=== PATIENT | female | born 1940 | race Caucasian/White ===

== ENCOUNTER → 2024-04-18 10:16 | Outpatient (REF) | payer OTHER, SELFPAY | LOC: HWRAD 10:16 | PROVIDERS: ATTENDING PHYSICIAN Internal Medicine | DX: R05.1 Acute cough (principal) | CPT/HCPCS: 71046 ==

== ENCOUNTER 2024-05-01 00:28 | Emergency (ER) | payer OTHER, SELFPAY ==
[2024-05-01 00:30] VITALS: BP 144/66
[2024-05-01 00:35] VITALS: BP 146/66
[2024-05-01] MEDS: REGLAN 10 MG IV (00:40)
--- NOTE | 2024-05-01 00:42 | ED.GENMED ---
History of Present Illness
General
Chief Complaint: Abdominal Symptoms
Source: patient and ambulance crew
Exam Limitations: none
Time Seen by Provider: 05/01/24 00:31
Nursing documentation reviewed up to this point in time: agreed with
History of Present Illness
History of Present Illness:
Pleasant 83-year-old female presents with nausea and dry heaving. She states that she was out with some friends at a [place] restaurant and felt sick after eating a meal. She did not have any diarrhea or fever. She has not actually vomited up any
food. She did receive Zofran and route to the hospital which she reports did not help.
Vital signs are stable. Patient not hypoxic
Nursing note reviewed. I agree with nursing documentation up to this point in time.
Home Meds and allergies reviewed.
NUMBER AND COMPLEXITY OF PROBLEMS ADDRESSED AT THE ENCOUNTER
� Chronic conditions affecting care: Esophagectomy
� Acute Exacerbation and/or Progression of Chronic Illness: Esophagectomy, GERD
� Differential Diagnosis includes: GERD, abdominal pain, cholelithiasis, small bowel obstruction, gastric outlet obstruction
AMOUNT AND/OR COMPLEXITY OF DATA TO BE REVIEWED AND ANALYZED
I performed an independent evaluation of the following and my interpretation is:
EKG:
CT:
X-rays:
Ultrasound:
Laboratory Studies: BUN is 23 creatinine is 0.8 T. bili 0.5 and normal.
Other:
Review of other/old records:
Clinical information was obtained by an independent historian:
Prescriptions/Medications Considered but not given:
Further testing considered but not performed:
RISK OF COMPLICATIONS AND/OR MORBIDITY OR MORTALITY OF PATIENT MANAGEMENT
Social determinants of health affecting care: Good Social Support, family at the bedside
Discussion with other providers:
Escalation of care including admission/observation vs risk of discharge considered:
CRITICAL CARE NOTE:
Total Time (exclusive of procedures):
Update:
Past History
Past History
ED Past Medical History: HTN, Hypothyroidism and Other (Trigeminal neuralgia, valvular heart disease,); Negative CAD
ED Past Surgical History: Cholecystectomy and Other (Esophajectomy)
Social History
Tobacco: Non-smoker
Alcohol: None
Personal:
Living: with family
Employment: Retired
Family History
Family History: CAD
Review of Systems
Review of Systems
Allergies reviewed?: Yes
All Other Systems: ROS reviewed and negative except as documented in HPI and ROS
Constitutional: Reports no symptoms
EENT: Reports no symptoms
Respiratory: Reports no symptoms
Cardiac: Reports no symptoms
ABD/GI: Reports abdominal pain, nausea and vomiting
: Reports no symptoms
Musculoskeletal: Reports no symptoms
Skin: Reports no symptoms
Neurological: Reports no symptoms
Endocrine: Reports no symptoms
Hematologic/Lymphatic: Reports no symptoms
Psychiatric: Reports no symptoms
Phy Exam
General Physical Exam
General Presentation: well appearing and moderate distress
General age: appears stated age
General Skin: warm and dry
General Habitus: normal
General Mental: alert
General Hydration: appears well hydrated
Cardiovascular Exam
Cardiovascular Exam: regular rate/rhythm and no edema
Gastrointestinal Exam
Gastrointestinal Exam: soft and non distended
Neurological Exam
Neurological Exam: alert and oriented x3
Musculoskeletal Exam
Musculoskeletal Exam: full ROM
Skin Exam
Skin Exam: normal color and warm/dry
Psychiatric Exam
Psychiatric Exam: normal mood/affect
Course
Orders/Labs/Results
Orders:
Orders
05/01/24 00:33
Metoclopramide [Reglan] 10 mg IV NOW STA
05/01/24 00:40
Complete Blood Count/With Diff Urgent
Comprehensive Metabolic Panel Urgent
Lipase Urgent
PTT Urgent
Prothrombin Time Urgent
05/01/24 01:44
CT Abd/pelvis W Iv Cont Urgent
Comment:
Reason For Exam: epigastric pain, hx esophagectomy
Abnormal Lab Results
05/01/24
00:40
Plt Count 122 L 10^3/uL
(130-400)
MPV 11.3 H fL
(7.4-10.4)
Abs Immat Gran (auto) 0.2 H 10^3/uL
(0-0.05)
Absolute Monos (auto) 0.7 H 10^3/uL
(0.1-0.6)
Immature Gran % 2.9 H %
(0-0.5)
Monocytes % 14.2 H %
(1.7-9.3)
Carbon Dioxide 31 H mmol/L
(22-30)
BUN 23 H mg/dl
(7-17)
Glucose 138 H mg/dl
(70-99)
05/01/24 00:40
05/01/24 00:40
Vital Signs
Initial and Last Documented VS:
Initial Vital Signs
Temp Pulse Resp BP Pulse Ox
98.0 F 63 19 144/66 97
05/01/24 00:30 05/01/24 00:30 05/01/24 00:30 05/01/24 00:30 05/01/24 00:30
Last Documented Vital Signs
Temp Pulse Resp BP Pulse Ox
98.0 F 62 17 163/61 95
05/01/24 00:30 05/01/24 01:45 05/01/24 01:45 05/01/24 01:00 05/01/24 01:45
*Critical Care Note
Total Time (30-74mins, 75-104mins- exclusive of procedures): Not Applicable
Update Note
Update Note:
Patient still having symptoms despite 2 antiemetics. Will be going for CAT scan.
CT ABDOMEN/PELVIS WITH CONTRAST
IMPRESSION:
1. No acute abnormality within the abdomen or pelvis.
2. No bowel obstruction. Status post cholecystectomy. Normal appendix. Large hiatal hernia
Incidentals:
-Diverticulosis without evidence of diverticulitis. Elevated left hemidiaphragm
- No obstructive uropathy.
- No hepatic or pancreatic mass.
- No abdominal aortic aneurysm.
- No acute osseous abnormality.
- No acute abnormality within the visualized lungs.
- No acute abnormality within the visualized soft tissues.
05/01/2024 0317 AM: Patient wishes to be discharged home. She still does not feel 100% but does not want to stay in the hospital at this time. , present at the bedside is an absolute agreement. Patient to be discharged home. I will provide
her a prescription for Reglan.
ED Attending Note
-
Portions of this chart may have been created with voice recognition software.� Occasional wrong word or��sound alike� substitutions may have occurred due to the inherent limitations of voice recognition software.
Discharge Plan
Departure
Patient Disposition: Home (Routine Discharge)
Date of Disposition: 05/01/24
Time of Disposition: 03:18
Patient with high blood pressure during this ER visit?: Yes
Condition: Good
Discharge Problem:
Abdominal pain, Nausea & vomiting
Instructions: Clear Liquid Diet, Nausea and Vomiting, Adult (DC), Abdominal Pain, BLOOD PRESSURE
Prescriptions:
New
metoclopramide HCl [Reglan] 10 mg tablet
10 mg PO Q8HPRN PRN (Reason: nausea and vomiting) Qty: 9 0RF
No Action
losartan 50 MG tablet
50 mg PO QPM
aspirin 81 MG tablet,delayed release (DR/EC)
81 mg PO DAILY
Patient Comments:
On hold for back injection due tomorrow (noted 03/27/16).
oxybutynin chloride [Ditropan XL] 5 MG tablet extended release 24hr
5 mg PO HS
coenzyme Q10 [Co Q-10] 200 MG capsule
200 mg PO DAILY
omeprazole-sodium bicarbonate [Zegerid] 40 MG packet
1 pkt PO HS
cholecalciferol (vitamin D3) [Vitamin D3] 2,000 UNIT capsule
3 tab PO DAILY
lutein 20 MG tablet
20 mg PO DAILY
levothyroxine 100 MCG tablet
100 mcg PO MOTUWETHFRSA
Referrals:
Radha Mitchell MD [Family Provider] -
Activity Restrictions/Additional Instructions:
Your prescriptions were sent electronically to the pharmacy that you specified.
It was a pleasure meeting you and taking part in your care. We hope for your continued healing and wellness.
Please read discharge instructions in their entirety. However, they are for general education and may not describe your exact diagnosis at discharge. Information on your ER visit and medical conditions were discussed with you along with appropriate
follow up information...
If indicated, please take your medications as instructed and indicated on discharge paperwork.
Please schedule a follow up appointment as directed. Call to schedule an appointment
Please return to the emergency department with ANY change in, persisting, or worsening of symptoms. If any of your symptoms do not improve, or persist, or become more severe within 6-12 hours, please return to the emergency department for further
care.
Please return to the emergency department if you develop a headache, neck pain/stiffness, fever greater than 100.4F, chest pain, shortness of breath, persistent nausea, vomiting, slurred speech, difficulty walking, numbness/tingling, weakness, signs
of infection or any other symptoms that are worrisome to you.
If you have any questions or concerns please do not hesitate to call the Hospital at or E-mail me directly at [email or web address]
Interventions
Interventions:
*Risk Screen - Suicide Last Done: 05/01/24 00:30
*General Assessment Last Done: 05/01/24 00:30
*Neglect/Abuse Screening Last Done: 05/01/24 00:30
ED- Fall Risk Assessment Last Done: 05/01/24 00:43
*Nursing Disposition Last Done: 05/01/24 03:30
YW-Crttff-Kchrmteutg Assessment Last Done: 05/01/24 00:43
Discharge Date and Time
Discharge Date/Time: 05/01/24 03:30
Print Language: POLISH
[2024-05-01 00:43] VITALS: BMI 35.6
[2024-05-01 00:55] LABS: % Basophils 0.6 % (0-2); % Eosinophils 0.8 % (0-6); % Immature Granulocytes 2.9 % (0-0.5); % Lymphocytes 25.5 % (20.5-51.1); % Monocytes 14.2 % (1.7-9.3); Absolute Immature Granulocytes 0.2 10^3/uL (0-0.05); Absolute Lymphocytes 1.3 10^3/uL (1.2-3.4); Absolute Monocytes 0.7 10^3/uL (0.1-0.6); Absolute Neutrophils 2.9 10^3/uL (1.4-6.5); Hematocrit 37.7 % (37.0-47.0); Hemoglobin 12.7 g/dL (12.0-16.0); Mean Corp Hgb Conc. 33.7 g/dL (33.0-37.0); Mean Corpuscular Hgb 29.7 pg (27.0-31.0); Mean Corpuscular Volume 88.1 fL (81.0-99.0); Mean Platelet Volume 11.3 fL (7.4-10.4); Nucleated Red Blood Cells % 0 %; Platelet Count 122 10^3/uL (130-400); Red Blood Cell Count 4.28 10^6/uL (4.20-5.40); Red Cell Dist. Width 13.8 % (11.5-14.5); White Blood Cell Count 5.1 10^3/uL (4.8-10.8)
[2024-05-01 00:59] LABS: APTT 27.6 Sec (23.4-35.0)
[2024-05-01 01:00] VITALS: BP 163/61
[2024-05-01 01:03] LABS: ALT (SGPT) 17 U/L (0-35); AST (SGOT) 27 U/L (14-36); Albumin 4.1 g/dl (3.5-5.0); Alkaline Phosphatase 81 U/L (38-126); Blood Urea Nitrogen 23 mg/dl (7-17); Calcium 9.3 mg/dl (8.4-10.2); Carbon Dioxide 31 mmol/L (22-30); Chloride 101 mmol/L (98-107); Estimated Creatinine Clearance 50 ml/min; Glucose 138 mg/dl (70-99); Lipase 70 U/L (23-300); Sodium 139 mmol/L (135-145); Total Bilirubin 0.5 mg/dl (0.2-1.3); Total Protein 6.5 g/dl (6.3-8.2); eGFR > 60.00
== END 2024-05-01 03:30 | disposition home or self-care (01) ==
LOC: EMR 00:28
PROVIDERS: EMERGENCY PHYSICIAN Student in an Organized Health Care Education/Training Program; FAMILY PHYSICIAN Internal Medicine
DX: R11.2 Nausea with vomiting, unspecified (principal); R10.9 Unspecified abdominal pain; I10 Essential (primary) hypertension
CPT/HCPCS: 99285; 96374; 74177; 80053; 83690; 85025; 85610; 85730; Q9967

== ENCOUNTER 2025-01-28 12:45 | Emergency (ER) | payer OTHER, SELFPAY ==
[2025-01-28 12:54] VITALS: BP 151/67
[2025-01-28 13:19] LABS: Hematocrit 38.8 % (37.0-47.0); Hemoglobin 12.7 g/dL (12.0-16.0); Mean Corp Hgb Conc. 32.7 g/dL (33.0-37.0); Mean Corpuscular Hgb 29.5 pg (27.0-31.0); Mean Corpuscular Volume 90.2 fL (81.0-99.0); Mean Platelet Volume 11.2 fL (7.4-10.4); Platelet Count 123 10^3/uL (130-400); Red Cell Dist. Width 13.9 % (11.5-14.5); White Blood Cell Count 5.1 10^3/uL (4.8-10.8)
--- NOTE | 2025-01-28 13:29 | ED.GENMED ---
History of Present Illness
General
Chief Complaint: Chest Pain
Source: patient
Exam Limitations: none
Time Seen by Provider: 01/28/25 13:12
History of Present Illness
History of Present Illness:
See MDM
Past History
Past History
ED Past Medical History: HTN, Hypothyroidism and Other (Trigeminal neuralgia, valvular heart disease,); Negative CAD
ED Past Surgical History: Cholecystectomy and Other (Esophajectomy)
Social History
Tobacco: Non-smoker
Alcohol: None
Personal:
Living: with family
Employment: Retired
Family History
Family History: CAD
Phy Exam
Physical Exam
Physical Exam:
See MDM
Scores
Heart Score for Chest Pain Patients
STEMI patient?: No
History: Moderately Suspicious
ECG: Normal
Age: >/= 65 years
Risk Factors: >/= 3 Risk Factors or History of CAD
Troponin: </= Normal Limit
Heart Score for Chest Pain Patients: 5
Heart Score Risk: 20.3% MACE over next 6 weeks
Course
Orders/Labs/Results
Orders:
Orders
01/28/25 12:46
EKG [Electrocardiogram (*1)] Urgent
Reason for Study: Chest Pain
EKG- Treatment ONCE
01/28/25 12:59
CR Chest - 2 Views Urgent
Comment:
Reason For Exam: shortness of breath
01/28/25 13:05
Complete Blood Count/With Diff Urgent
Comprehensive Metabolic Panel Urgent
Manual Differential Urgent
Pro-BNP [NT-proBNP] Urgent
Troponin I Urgent
01/28/25 13:28
Echo 2D MMode Color/Doppler Urgent
Reason for Study: SOB, chest pain
Cardiology Consult: Samuel Clement
CARDIOLOGY CONSULT Urgent
Consulting Provider: Samuel Clement
Was physician already notified: Yes
01/28/25 16:23
Troponin I Urgent
Abnormal Lab Results
01/28/25
13:05
MCHC 32.7 L g/dL
(33.0-37.0)
Plt Count 123 L 10^3/uL
(130-400)
MPV 11.2 H fL
(7.4-10.4)
Monocytes (Manual) 18 H %
(2-9)
Carbon Dioxide 36 H mmol/L
(22-30)
BUN 22 H mg/dl
(7-17)
Glucose 109 H mg/dl
(70-99)
01/28/25 13:05
01/28/25 13:05
Vital Signs
Initial and Last Documented VS:
Initial Vital Signs
Temp Pulse Resp BP Pulse Ox
98.2 F 58 16 151/67 97
01/28/25 12:54 01/28/25 12:54 01/28/25 12:54 01/28/25 12:54 01/28/25 12:54
Last Documented Vital Signs
Temp Pulse Resp BP Pulse Ox
98.2 F 52 17 137/51 96
01/28/25 12:54 01/28/25 16:30 01/28/25 16:30 01/28/25 16:26 01/28/25 16:30
MDM/Problems Addressed
Differential Diagnosis Includes:
HPI and MDM Narrative:
84-year-old female presenting for evaluation of persistent shortness of breath with exertion. She has been dealing with the symptoms for several weeks. After a cardiac CT, her cement finisher helper at [facility] was able to see that she had a complete blockage
of one of her cardiac vessels. Patient believes it was the LAD. She had a stent about a week ago and stayed overnight. Patient still complaining of shortness of breath and chest discomfort with exertion. Given the ongoing symptoms, she was sent
in for evaluation. Will have cards evaluate
Physical exam
General: Well appearing and non-toxic
HEENT: protecting airway
Neck: appears supple
CV: No evidence of cyanosis. Regular rate and rhythm
Resp: No accessory muscle use. Lungs clear
Abd: Non-distended
Extremities: No deformities. No leg edema
Neuro: alert
Psych: Normal affect
Skin: Intact
Problems Addressed including Acute and Chronic Conditions affecting care:
1. Exertional dyspnea
Acuity: acute
Prognosis: stable
Details: Potential in the setting of recent cardiac stent. Will obtain 2 troponin rule out and have cardiology evaluate and obtain echo
Updates
Troponin negative x 2. Chest x-ray clear. Echo without acute cardiac issues. Patient given printout of blood work and chest x-ray report. She was given a CD of the echo and discussed follow-up with cardiology
Differential Diagnosis (but not limited to): Pericardial effusion, acute coronary syndrome, pneumonia
Testing considered: D-dimer
Drug therapy (if applicable): OTC meds, please see d/c instruction regarding Rx drugs
Amount and/or Complexity of Data Reviewed
Clinical info obtained from: Patient
External data reviewed: N/A
Labs I independently reviewed (but not limited to): Troponin negative x 2
Radiology: X-ray independently reviewed: Chest x-ray clear
Pulse Ox: not hypoxic
EKG independently reviewed: Sinus rhythm, left axis, no STEMI
Marine Equipment Sales Engineer: Sinus rhythm
Critical Care: N/A
Risk of Complication:
Social Determinants of health: Good social support
Discussed with other providers: Cardiology
Escalation of Care includes Admit/Obs: After being observed in the Emergency Department, pt stable for discharge.
Occasional wrong word or 'sound a like' substitutions may have occurred due to the inherent limitations of voice recognition software. Read the chart carefully and recognize, using context, where substitutions have occurred.
*Critical Care Note
Total Time (30-74mins, 75-104mins- exclusive of procedures): Not Applicable
ED Attending Note
-
Portions of this chart may have been created with voice recognition software.� Occasional wrong word or��sound alike� substitutions may have occurred due to the inherent limitations of voice recognition software.
Discharge Plan
Departure
Patient Disposition: Home (Routine Discharge)
Date of Disposition: 01/28/25
Time of Disposition: 17:38
Patient with high blood pressure during this ER visit?: No
Discharge Problem:
Exertional dyspnea
Prescriptions:
No Action
losartan 50 MG tablet
50 mg PO QPM
aspirin 81 MG tablet,delayed release (DR/EC)
81 mg PO DAILY
Patient Comments:
On hold for back injection due tomorrow (noted 03/27/16).
oxybutynin chloride [Ditropan XL] 5 MG tablet extended release 24hr
5 mg PO HS
coenzyme Q10 [Co Q-10] 200 MG capsule
200 mg PO DAILY
omeprazole-sodium bicarbonate [Zegerid] 40 MG packet
1 pkt PO HS
cholecalciferol (vitamin D3) [Vitamin D3] 2,000 UNIT capsule
3 tab PO DAILY
lutein 20 MG tablet
20 mg PO DAILY
levothyroxine 100 MCG tablet
100 mcg PO MOTUWETHFRSA
metoclopramide HCl [Reglan] 10 mg tablet
10 mg PO Q8HPRN PRN (Reason: nausea and vomiting) Qty: 9 0RF
Referrals:
Radha Mitchell MD [Family Provider] -
Activity Restrictions/Additional Instructions:
Please return for any worsening symptoms.
You may return at any time if you have further concerns.
Please follow up with your cement finisher helper at the first available appointment, preferably this week.
Thank you for choosing [facility].
Interventions
Interventions:
*Risk Screen - Suicide Last Done: 01/28/25 12:58
*General Assessment Last Done: 01/28/25 12:58
*Neglect/Abuse Screening Last Done: 01/28/25 12:58
*ED- Fall Risk Assessment Last Done: 01/28/25 13:30
*ED COVID-19 Vaccine History Last Done: 01/28/25 13:30
ED- Cardiac Assessment Last Done: 01/28/25 13:30
Discharge Date and Time
Print Language: LUXEMBOURGER
[2025-01-28 13:30] VITALS: BP 123/44; BMI 34.5
[2025-01-28 13:32] LABS: ALT (SGPT) 16 U/L (0-35); AST (SGOT) 24 U/L (14-36); Albumin 3.9 g/dl (3.5-5.0); Alkaline Phosphatase 80 U/L (38-126); Blood Urea Nitrogen 22 mg/dl (7-17); Calcium 9.5 mg/dl (8.4-10.2); Carbon Dioxide 36 mmol/L (22-30); Chloride 101 mmol/L (98-107); Glucose 109 mg/dl (70-99); Potassium 4.9 mmol/L (3.5-5.1); Sodium 140 mmol/L (135-145); Total Bilirubin 0.7 mg/dl (0.2-1.3); Total Protein 6.5 g/dl (6.3-8.2); eGFR > 60.00
[2025-01-28 13:42] LABS: NT-proBNP 516 pg/ml; Troponin I 0.018 ng/ml
[2025-01-28 14:00] VITALS: BP 100/40
[2025-01-28 14:02] LABS: Absolute Neutrophils -Man Diff 2.6 10^3/uL (1.4-6.5); Band Neutrophils 0 % (0-3); Eosinophils 1 % (0-6); Hypochromasia Slight; Lymphocytes 29 % (20-51); Monocytes 18 % (2-9); Normal RBC Morphology No; Ovalocytes Slight; Platelets Checked Yes; Segmented Neutrophils 52 % (42-75); Total Cells Counted 100
--- NOTE | 2025-01-28 14:44 | CON.CAR ---
Addendum entered and electronically signed by Samuel Clement DO 01/28/25 16:41:
I saw and examined the patient.
The Anesthetic Assistant's note was reviewed and I agree with the note.
Comment:
Plan:
Patient presents with continued chest discomfort in setting of recent cardiac evaluation resulting in LAD PCI 01/20/2025 through primary press box custodian office at [facility]. She has been getting dyspnea on exertion for days and called her press box custodian office
and they directed her to ER.
Her chest symptoms do not appear cardiac and she admit to chronic dyspnea.
Initial trop negative. Check second troponin and if negative then she can follow up with her press box custodian.
Urgent echo showed normal EF with stable valves. PA pressures slightlly higher which could be consistent with underlying lung disease.
EKG stable.
HR and bp stable.
Discussed with ER.
Cardiac follow-up arranged with her primary press box custodian at [facility] for later this month
Original Note:
Consultation
Consultation Request
Date/Time Consultation Performed: 01/28/25
Requesting Provider: Dr. Greenwood
Performing Provider: Zoraida Bello PA-C for Dr. Clement
Reason for Consultation: CP, SOB
Medical History
-
Chief Complaint: CP, SOB
History of Present Illness:
Patient is an 84 yo F with PMH of esophagectomy approximately 30 years ago, chronic GERD, probable TIA, cervical spine disease status post fusion, dumping syndrome, chronic dyspnea on exertion followed by pulmonary for atelectasis who had recently
noted discomfort across her chest without associated symptoms of nausea/vomiting, diaphoresis, lightheadedness or dizziness. She reports the pain occurs at random, intermittently, and does not appear tied to exertion, eating, or positional change.
She denies aggravating or alleviating factors to her knowledge. She was seen by her press box custodian, Dr. Tavares with [facility] and underwent CT (PET/CT stress or coronary CT?) which showed LAD disease. She underwent cardiac catheterization on 01/20/2025
resulting in LAD PCI (cardiac cath report reviewed). At that time she was started on Plavix in addition to her aspirin and her statin dose was increased. Of note she does have history of myalgias with statins. Since her procedure, she reports she
has continued with chest discomfort, and today while rushing around noted that she was short of breath in addition. She called Dr. Tavares's office and he referred her to the emergency room. Troponin 0.018. EKG sinus bradycardia without acute ST
abnormalities. Cardiology consulted for evaluation
PMH:
CAD s/p LAD PCI 01/20/25 at [facility]
Chronic JAIMES
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
Chronic GERD
Dumping syndrome
History of probable TIA
Cervical spine disease s/p fusion
RUDDY on CPAP
Hypothyroidism
HTN
HLD
Obesity
Past Medical History
Past Medical History: Other (in HPI)
Social History
Tobacco: Non-Smoker
Alcohol: None
Employment: Retired
Family History
Family History: Reviewed & Not Pertinent
Allergies / Home Medications
Allergy/AdvReac Type Severity Reaction Status Date / Time
amoxicillin [Amoxicillin] Allergy Rash Verified 01/28/25 12:54
NSAIDS (Non-Steroidal Allergy Unknown Verified 01/28/25 12:54
Anti-Inflamma
onabotulinumtoxinA Allergy Rash Verified 01/28/25 12:54
[From Botox]
dyes Allergy Unknown Uncoded 01/28/25 12:54
�Medication �Instructions �Recorded �Confirmed �Type
aspirin 81 mg tablet,delayed 81 mg PO DAILY 03/27/16 03/27/21 History
release
cholecalciferol (vitamin D3) 50 3 tab PO DAILY 03/27/16 03/27/21 History
mcg (2,000 unit) capsule (Vitamin
D3)
coenzyme Q10 200 mg capsule (Co 200 mg PO DAILY 03/27/16 03/27/21 History
Q-10)
losartan 50 mg tablet 50 mg PO QPM 03/27/16 03/27/21 History
lutein 20 mg tablet 20 mg PO DAILY 03/27/16 03/27/21 History
omeprazole 40 mg-sodium 1 pkt PO HS 03/27/16 03/27/21 History
bicarbonate 1,680 mg oral packet
(Zegerid)
oxybutynin chloride 5 mg 5 mg PO HS 03/27/16 03/27/21 History
tablet,extended release 24 hr
(Ditropan XL)
levothyroxine 100 mcg tablet 100 mcg PO MOTUWETHFRSA 03/27/21 03/27/21 History
metoclopramide HCl 10 mg tablet 10 mg PO Q8HPRN PRN nausea and 05/01/24 Rx
(Reglan) vomiting #9 tabs
Review of Systems
-
History Source: Patient and Family
All other systems: Negative unless noted
Physical Exam
Vital Signs
Temp Pulse Resp BP Pulse Ox
98.2 F 58 19 123/44 100
01/28/25 12:54 01/28/25 12:54 01/28/25 13:30 01/28/25 13:30 01/28/25 13:30
Lab Results
01/28/25 13:05
01/28/25 13:05
Troponin I 0.018 ng/ml 01/28/25 13:05
Mwk-K-Vhvbshpdfol Pept 516 pg/ml 01/28/25 13:05
Physical Exam
General: No Apparent Distress and Comfortable
HEENT: Normocephalic, Anicteric and Moist Mucous Membranes
Respiratory: Clear and Non Labored Respirations
Cardiac: S1/S2, Regular Rhythm and Other (alfonso)
GI: Soft, Non Tender, Non Distended and Normal Bowel Sounds
Musculoskeletal: No Clubbing, No Cyanosis and No Edema
Skin: Warm and Dry
Neuro: AO x 3
Impression / Plan
-
Primary Environmental Geologist: Dr. Tavares at [facility]
Assessment:
Presentation with CP, JAIMES
CAD s/p LAD PCI 01/20/25 at [facility]
Chronic JAIMES
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
Chronic GERD
Dumping syndrome
History of probable TIA
Cervical spine disease s/p fusion
RUDDY on CPAP
Hypothyroidism
HTN
HLD
Obesity
ECHO 05/25/21: EF 60%, mild concentric LVH, mild AR
ECHO 01/28/25: pending
Plan:
- Patient presents with continued chest discomfort in setting of recent cardiac evaluation resulting in LAD PCI 01/20/2025 through primary press box custodian office at [facility]. Today she also noted some dyspnea on exertion when she was 'rushing around'. She
called her press box custodian office who referred her to ER for further evaluation
- Initial troponin 0.018. Second troponin at 4:00
- Check echo given recent stent to LAD 01/20/2025
- Blood pressure/heart rate stable
- EKG sinus bradycardia without acute ST abnormalities
- Cardiac follow-up arranged with her primary press box custodian at [facility] for later this month
- if second trop and echo are reassuring, ok to DC from cardiac standpoint
- Encourage patient to follow-up with her outpatient GI and pulmonary physicians given ongoing symptoms as may be noncardiac.
- d/w ER physician
Data Reviewed
-
EKG: Tracing Personally Visualized and interpreted
Medical Tests (Nuc Med, Echo etc): Report Reviewed by me
Labs: Labs Reviewed by me
Old Records: Reviewed
[2025-01-28 16:26] VITALS: BP 137/51
[2025-01-28 17:00] VITALS: BP 127/63
[2025-01-28 17:01] LABS: Troponin I < 0.012 ng/ml
== END 2025-01-28 17:53 | disposition home or self-care (01) ==
LOC: EMR 12:45
PROVIDERS: Emergency Medicine; CONSULT PHYSICIAN Nuclear Medicine Nuclear Cardiology; EMERGENCY PHYSICIAN Student in an Organized Health Care Education/Training Program; FAMILY PHYSICIAN Internal Medicine
DX: R07.89 Other chest pain (principal); R00.1 Bradycardia, unspecified; E03.9 Hypothyroidism, unspecified; I10 Essential (primary) hypertension; Z90.49 Acquired absence of other specified parts of digestive tract; G47.33 Obstructive sleep apnea (adult) (pediatric); K21.9 Gastro-esophageal reflux disease without esophagitis; I25.10 Atherosclerotic heart disease of native coronary artery without angina pectoris; Z95.5 Presence of coronary angioplasty implant and graft; E78.5 Hyperlipidemia, unspecified
CPT/HCPCS: 99285; 71046; 80053; 83880; 84484; 85025; 93005; 93306

== ENCOUNTER 2025-03-03 11:26 | Outpatient (RCR) | payer OTHER, SELFPAY | END 2025-03-04 08:08 | disposition home or self-care (01) | LOC: CRHB 11:26 | PROVIDERS: ATTENDING PHYSICIAN Internal Medicine Cardiovascular Disease | DX: I25.10 Atherosclerotic heart disease of native coronary artery without angina pectoris (principal); Z95.5 Presence of coronary angioplasty implant and graft | CPT/HCPCS: G0422; G0423 ==

== ENCOUNTER 2025-03-21 11:53 | Outpatient (RCR) | payer OTHER, SELFPAY | END 2025-03-21 23:59 | disposition home or self-care (01) | LOC: CRHB 11:53 | PROVIDERS: ATTENDING PHYSICIAN Internal Medicine Cardiovascular Disease; FAMILY PHYSICIAN Internal Medicine | DX: I25.10 Atherosclerotic heart disease of native coronary artery without angina pectoris (principal); Z95.5 Presence of coronary angioplasty implant and graft | CPT/HCPCS: 93005; G0422; G0423 ==

== ENCOUNTER 2025-04-21 11:57 | Outpatient (RCR) | payer OTHER, SELFPAY | END 2025-04-21 23:59 | disposition home or self-care (01) | LOC: CRHB 11:57 | PROVIDERS: ATTENDING PHYSICIAN Internal Medicine Cardiovascular Disease; FAMILY PHYSICIAN Internal Medicine | DX: I25.10 Atherosclerotic heart disease of native coronary artery without angina pectoris (principal); Z95.5 Presence of coronary angioplasty implant and graft | CPT/HCPCS: G0422; G0423 ==

== ENCOUNTER 2025-05-21 11:06 | Outpatient (RCR) | payer OTHER, SELFPAY | END 2025-05-21 23:59 | disposition home or self-care (01) | LOC: CRHB 11:06 | PROVIDERS: ATTENDING PHYSICIAN Internal Medicine Cardiovascular Disease; FAMILY PHYSICIAN Internal Medicine | DX: I25.10 Atherosclerotic heart disease of native coronary artery without angina pectoris (principal); Z95.5 Presence of coronary angioplasty implant and graft | CPT/HCPCS: G0422; G0423 ==

== ENCOUNTER 2025-06-20 14:01 | Outpatient (RCR) | payer OTHER, SELFPAY ==
[2025-05-27 11:59] LABS: HDL Cholesterol 44 mg/dl; LDL Cholesterol, Calculated 28 mg/dl; Very Low Density Lipoprotein 13 mg/dl (0-30)
== END 2025-06-20 23:59 | disposition home or self-care (01) ==
LOC: CRHB 14:01
PROVIDERS: Internal Medicine Cardiovascular Disease; ATTENDING PHYSICIAN Internal Medicine Cardiovascular Disease; FAMILY PHYSICIAN Internal Medicine
DX: I25.10 Atherosclerotic heart disease of native coronary artery without angina pectoris (principal); Z95.5 Presence of coronary angioplasty implant and graft
CPT/HCPCS: 36415; 80061; G0422; G0423

== ENCOUNTER 2025-06-27 11:59 | Outpatient (RCR) | payer OTHER, SELFPAY | END 2025-06-27 23:59 | disposition home or self-care (01) | LOC: CRHB 11:59 | PROVIDERS: ATTENDING PHYSICIAN Internal Medicine Cardiovascular Disease; FAMILY PHYSICIAN Internal Medicine | DX: I25.10 Atherosclerotic heart disease of native coronary artery without angina pectoris (principal); Z95.5 Presence of coronary angioplasty implant and graft | CPT/HCPCS: G0422; G0423 ==

== ENCOUNTER → 2025-07-23 13:13 | Outpatient (REF) | payer OTHER, SELFPAY | LOC: HWRAD 13:13 | PROVIDERS: ATTENDING PHYSICIAN Internal Medicine | DX: R09.89 Other specified symptoms and signs involving the circulatory and respiratory systems (principal); R06.09 Other forms of dyspnea; I51.89 Other ill-defined heart diseases | CPT/HCPCS: 71046 ==

== ENCOUNTER → 2025-09-09 12:33 | Outpatient (REF) | payer OTHER, SELFPAY | LOC: HWRAD 12:33 | PROVIDERS: ATTENDING PHYSICIAN Internal Medicine | DX: M79.605 Pain in left leg (principal); Z96.642 Presence of left artificial hip joint; Z91.81 History of falling | CPT/HCPCS: 73502; 73552 ==